=== PATIENT | female | born 1985 | race Caucasian/White ===

== ENCOUNTER 2018-09-02 08:15 | Inpatient (IN) | payer OTHER, SELFPAY ==
[2018-09-02 08:35] VITALS: BMI 30.2
[2018-09-02] MEDS: Lactated Ringers 1,000 ML 50 ML IV ×3 (08:57→19:00)
[2018-09-02 09:11] LABS: Bedside Glucose 93 mg/dL (70-110)
[2018-09-02] MEDS: Oxytocin 30 units/NS 500 ml 30 UNITS/500 ML IV.SOLN IV (09:39)
[2018-09-02 09:51] LABS: Hematocrit 40.4 % (37-47); Hemoglobin 13.1 g/dl (12.0-15.0); Mean Corp Hgb Conc 32.4 g/gl (32-36); Mean Corpuscular Hgb 29.6 pg (27.0-32.0); Mean Corpuscular Volume 91.4 fL (81-99); Mean Platelet Vol. 10.5 fl (6.2-12.0); Platelet Count 202 K/mm3 (150-450); RBC Distribution Width SD 46.2 fl (35.1-43.9); Red Blood Count 4.42 M/mm3 (4.2-5.4); White Blood Count 13.8 K/mm3 (4.4-11.0)
[2018-09-02 09:53] LABS: Scan Indicated on CBC? Y/N NO
[2018-09-02 09:57] LABS: Partial Thromboplast Time 25.4 Seconds (24.1-36.2)
[2018-09-02 10:27] LABS: Bedside Glucose 73 mg/dL (70-110)
[2018-09-02 14:05] LABS: Bedside Glucose 88 mg/dL (70-110)
[2018-09-02] MEDS: Acetaminophen 325 MG Tablet PO (14:53)
[2018-09-02] MEDS: fentaNYL-bupivacaine (epidural) 100 ML BAG EPIDURAL (15:55)
--- NOTE | 2018-09-02 17:20 | HP.PCM_ITS ---
- Problem List (1) Term Status: Acute (2) Thrombophilia affecting in third trimester, antepartum Status: Chronic (3) Gestational diabetes, diet controlled Status: Acute Qualifiers: Trimester: third trimester Qualified Code(s): O24.410 - Gestational diabetes mellitus in , diet controlled History Date of Admission: 09/02/18 Final JASON: 09/07/18 Final JASON Source: [place] <20 weeks Gestational age: 39 Weeks and 2 Days History of this : This is a 33 year-old, G [5], P [2], at 39 weeks gestational age. Induction due to thrombophilia on prophylactic anticoagulation. Last dose of Heparin was Friday night. GDMa1 good control although baby is LGA and EFW 9# (previous 8#4). GBS neg. Plan pitocin induction Medical History: Medical History (Last Updated 09/02/18 @ 17:24 by Roxy Jensen DO) Asthma J45.909 D&C GERD (gastroesophageal reflux disease) K21.9 Right ACL tear S83.511A [place] teeth extracted K08.409 recurrent loss- MAEVE-1 History of DVT (deep vein thrombosis) (Resolved) Z86.718 Allergies amoxicillin Allergy (Verified 09/02/18 08:38) Rash Home Medications: Home Medications Calcium Carbonate [Tums] 500 mg PO PRN PRN 09/02/18 Vit No.130/Iron/Folic [ Tablet] 1 each PO DAILY 09/02/18 Smoking Status: Never smoker Alcohol: None Number of Fetus(es): 1 Heart Tracing: Cat 1 TOCO Analysis: q 2-4 min on Pit 12 IUPC placed after AROM for clear fluid and pit increased to 14 History Past Pregnancies: Past Pregnancies Delivery Date Name GA/Weeks Outcome Route Weight Gender Labor Length Anesthesia Delivery Location Provider FOB 6 [phone]#[id number] [phone]#[id number] Expected Infant Delivery Method: Spontaneous Vaginal Number of Visits: 13 Review of Systems Constitutional: Denies: Chills, Fever, Weight Change HEENT: Denies: Head Aches, Sinus Congestion, Sinus Drainage Cardiovascular: Denies: Chest Pain, Palpitations Respiratory: Denies: Cough, Shortness of breath at rest, Sputum production Gastrointestinal: Denies: Abdominal Pain, Nausea, Vomiting Genitourinary: Denies: Dysuria Musculoskeletal: Denies: Joint Pain, Joint Tenderness Skin: Denies: Rash, Wounds Neurological: Denies: Numbness, Tingling, Focal weakness Psychiatric: Denies: Anxiety, Depression, Homicidal Ideations, Suicidal Brianna ations Hematologic/ Lymphatic: Reports: Easy Bruising. Denies: Easy Bleeding Physical Exam General: Alert, Oriented x3, No apparent distress HEENT: Atraumatic, Normocephalic. Negative for: Thyromegaly, Lymphadenopathy Cardiovascular: Regular rate Lungs: Clear to auscultation Abdomen: Bowel Sounds Present, Gravid Extremities:: No clubbing, No edema Neurological: Muscle tone normal Estimated gestational size: Large for gestational age Presentation: Cephalic Cervix Dilation (cm): 4 Station: -2 Effacement (%): 50 Assessment/Plan All Active Problems (Last Updated 09/02/18 @ 17:24 by Roxy Jensen DO) Term (Acute) Gestational diabetes, diet controlled (Acute) History of DVT (deep vein thrombosis) (Resolved) This is a 33 year-old, G [], P [], at 39 weeks gestational age. Pit induction plan for vaginal delivery discussed possible shoulder dystocia with patient and family
[2018-09-02 18:06] LABS: Bedside Glucose 65 mg/dL (70-110)
[2018-09-02 19:16] LABS: Bedside Glucose 93 mg/dL (70-110)
--- NOTE | 2018-09-02 20:09 | PCM.OB.VAG ---
- Problem List (1) Term Status: Acute (2) Thrombophilia affecting in third trimester, antepartum Status: Chronic (3) Gestational diabetes, diet controlled Status: Acute Qualifiers: Trimester: third trimester Qualified Code(s): O24.410 - Gestational diabetes mellitus in , diet controlled Vaginal Delivery Maternal Presentation: Medically Indicated Induction 33 yo arrived for pitocin induction due to hypercoagulable state on heparin, GBS neg, GDMA2 and LGA Method of Induction: Pitocin Medical Reason for Induction: Maternal Medical Condition: list: - Hypercoaguable state and GDMA1 Amniotic Membrane Rupture Type: Artificial Amniotic Fluid Description: Clear Final JASON: 09/07/18 Gestational age: 39 Weeks and 2 Days Date of Procedure: 09/02/18 Pre-Operative Diagnosis: Hypercoaguable state/ GDMA2 Post-Operative Diagnosis: same Surgery/ Procedure Performed: Spontaneous Vaginal Delivery Type of Anesthesia: Epidural Presentation: Vertex, REAL - Patient arrived, pitocin was started she had slow onset of regular contractions. AROM at 1600 and she was 3-4 progressed to complete with IUPC documenting adequate contractions. Was comfortable with her epidural. She was found to be complete at 1935 and delivered with 1 contraction/set of pushes at 1943 no shoulder dystocia. Infant placed on maternal abdomen and delayed cord clamping performed. Cord was then clamped and cut. Placenta delivered spontaneously. Uterus was firm and bleeding WNL. Uterus explored. 1st degree repaired with 3-0 rapide. Patient desired removal of 2 skin takes on bilateral groin. They were very small and appeared benign without pigmentation. While numb from epidural they were cleansed and with steril technique these were grasped with Ayesha clamp and shaved off skin, less than 0.5 cm each. They were not sent for pathology. The small abrasions from excision were dressed with dermabond. Patient tolerated the procedure well sponge and needle count correct x 2. Placental Delivery Description: Spontaneous Placenta Disposition: Routine to Lab Cord Vessel Description: 3 Vessels Cord Entanglement: None Estimated Blood Loss: 250 A gender: Male (1 minute): 8 (5 minute): 9 Episiotomy Description: None Laceration: 1st degree Medications given after delivery: IV Pitocin Complications: None
[2018-09-02] MEDS: Oxytocin 30 units/NS 500 ml 30 UNITS/500 ML IV.SOLN 334 UNITS IV (20:18)
[2018-09-02] MEDS: Oxytocin 30 units/NS 500 ml 30 UNITS/500 ML IV.SOLN 167 UNITS IV (20:48)
[2018-09-02 21:25] LABS: Bedside Glucose 78 mg/dL (70-110)
[2018-09-03] VITALS: BP 108/61; PULSE 94; RESP 16; TEMP 36.6
[2018-09-03 04:30] VITALS: BP 99/54; PULSE 83; RESP 16; TEMP 36.8
[2018-09-03] MEDS: Enoxaparin 40 MG/0.4 ML Syringe SC (05:26)
[2018-09-03 05:35] LABS: Bedside Glucose 87 mg/dL (70-110)
[2018-09-03 08:24] VITALS: BP 102/66; PULSE 77; RESP 18; TEMP 36.2
[2018-09-03] MEDS: Ibuprofen 600 MG Tablet PO ×2 (08:30→20:32)
[2018-09-03] MEDS: Senna/Docusate Sodium 1 Tablet PO (08:31)
[2018-09-03 11:41] VITALS: BP 111/67; PULSE 97; RESP 16; TEMP 36.2
[2018-09-03 16:30] VITALS: BP 108/69; PULSE 86; RESP 16; TEMP 36.4
[2018-09-03 20:30] VITALS: BP 118/72; PULSE 74; RESP 16; TEMP 36.6
[2018-09-04 02:30] VITALS: BP 115/55; PULSE 69; RESP 18; TEMP 36.5
[2018-09-04] MEDS: Enoxaparin 40 MG/0.4 ML Syringe SC (05:47)
[2018-09-04 08:55] VITALS: BP 109/67; PULSE 81; RESP 18; TEMP 36.4
[2018-09-04 13:48] VITALS: BP 115/62; PULSE 74; RESP 22; TEMP 36.5
[2018-09-04 20:55] VITALS: BP 112/73; PULSE 82; RESP 16; TEMP 36.6; O2SAT 97
[2018-09-04] MEDS: Ibuprofen 600 MG Tablet PO (21:02)
--- NOTE | 2018-09-08 18:37 | NURSING ---
Follow up phone call made and message left for Mom to all if we can be of assistance. Jignesh LOYD IBCLC
== END 2018-09-04 23:00 | disposition home or self-care (01) | DRG 806 ==
PROVIDERS: Admitting Provider Obstetrics & Gynecology; Referring Provider Obstetrics & Gynecology; Visit Provider Obstetrics & Gynecology
DX: O99.12 Other diseases of the blood and blood-forming organs and certain disorders involving the immune mechanism complicating childbirth (principal); D68.59 Other primary thrombophilia; Z37.0 Single live birth; O70.0 First degree perineal laceration during delivery; O24.420 Gestational diabetes mellitus in childbirth, diet controlled; O36.63X0 Maternal care for excessive fetal growth, third trimester, not applicable or unspecified; Z86.718 Personal history of other venous thrombosis and embolism; Z79.01 Long term (current) use of anticoagulants; O26.23 Pregnancy care for patient with recurrent pregnancy loss, third trimester; O99.89 Other specified diseases and conditions complicating pregnancy, childbirth and the puerperium; L91.8 Other hypertrophic disorders of the skin; Z3A.39 39 weeks gestation of pregnancy
CPT/HCPCS: 59025; 59050; 82962; 85027; 85610; 85730; 86850; 86900; 99218; J7120; G0378